=== PATIENT | female | born 1960 | race Caucasian/White ===

== ENCOUNTER 2016-07-19 05:45 | Inpatient (IN) | payer OTHER ==
[2016-07-04 13:03] LABS: URINE BILIRUBIN NEGATIVE (Negative); URINE BLOOD NEGATIVE (Negative); URINE COLOR YELLOW; URINE GLUCOSE-RANDOM* NEGATIVE (Negative); URINE KETONES NEGATIVE (Negative); URINE LEUKOCYTES-REFLEX NEGATIVE (Negative); URINE PROTEIN (DIPSTICK) NEGATIVE (Negative); URINE SPECIFIC GRAVITY 1.015 (1.003-1.035); URINE UROBILINOGEN 0.2 E.U./dl (0.2-1.0)
[2016-07-04 13:04] LABS: HEMATOCRIT 38.8 % (37.0-47.0); MCH 30.7 pg (26.0-34.0); MCHC 33.6 g/dL (28.0-37.0); MCV 91.6 fL (80.0-100.0); RBC 4.24 mil/uL (4.20-5.00); RDW 14.4 % (10.5-14.5); WBC 6.5 thou/uL (4.0-11.0)
[2016-07-04 13:11] LABS: ALBUMIN 3.7 g/dL (3.4-5.0); CALCIUM 8.9 mg/dL (8.5-10.1); POTASSIUM 4.2 mmol/L (3.5-5.1)
[2016-07-04 13:20] LABS: PROTIME 10.8 Seconds (9.3-11.4)
[2016-07-19] VITALS (9 sets, daily range): BP systolic 115–147; BP diastolic 72–119
[~2016-07-19] VITALS: Ht 157.5 cm; Wt 90.7 kg
--- NOTE | ~2016-07-19 | O ---
[facility] [place] [address] OPERATIVE REPORT Name: ROSALINDASTEVENNIMISHA AMARAL Carlota Room #: 543-P [facility] IN M.R.#: [id number] Admission: 07/19/16 Attend Phys: Shin Hook MD Discharge: 07/22/16 Date of : 62 Report #: [id number] THIS REPORT FOR: //name// CC: Miller Hook DATE OF SERVICE: 07/19/2016 PREOPERATIVE DIAGNOSES: 1. Right knee degenerative joint disease, severe. 2. Morbid obesity, body mass index of 40.23. POSTOPERATIVE DIAGNOSES: 1. Right knee degenerative joint disease, severe. 2. Morbid obesity, body mass index of 40.23. PROCEDURE: Right total knee arthroplasty. SURGEON: Shin Hook MD. MEMS INTEGRATION ENGINEER: Herbert Fleming, nurse practitioner. INDICATIONS FOR MEMS INTEGRATION ENGINEER: During the course of operation, extensive manipulation, retraction, and limb positioning was required. This was afforded to me by my assistant department manager. This was especially in light of the patient's size, which required additional time for the procedure. ANESTHESIA: General. INDICATIONS: See hospital H and P revisions, 07/19/2016. IMPLANTS UTILIZED: We used a DePuy PFC knee system. We used a cruciate retaining femoral component, size 2.5 press fit. Size 2 tibial tray with a 12.5 mm insert and a 35 mm oval dome patella. DESCRIPTION OF PROCEDURE: After adequate general anesthesia had been obtained, the patient's right lower extremity was prepped and draped in the usual meticulous sterile fashion. Limb was exsanguinated with gravity, tourniquet inflated to 350 torr. Anterior midline incision was made, subQ divided sharply. Hemostasis obtained with electrocautery. Medial parapatellar incision was made. Infrapatellar fat pad excised. Medial release performed. The knee was flexed. The drill was used to drill the distal femur. This hole was enlarged, irrigated, suctioned, and the intramedullary guide placed the full length of the femur. Distal femoral cutting guide pinned to appropriate height, distal femoral cut was made. Measuring device determined the size 2.[address] [address] OPERATIVE REPORT Name: NIMISHA LOPEZ Room #: 543-P [facility] IN M.R.#: [id number] Admission: 07/19/16 Attend Phys: Shin Hook MD Discharge: 07/22/16 Date of : 62 Report #: [id number] size for this patient. We marked the distal femur and impacted the cutting guide into place, and anterior, posterior, and chamfer cuts were made. Rongeur was used to remove additional osteophytes. At this time, the ACL was transected, tibia translated anteriorly, and menisci were excised. Drill was used to drill the central portion of the tibia. This hole was enlarged, irrigated, suctioned, and the intramedullary guide placed the full length of the tibia. The proximal tibial cutting guide placed at appropriate height. Proximal tibial cut was made. 2 tray gave us the best coverage on the tibia. We put the trial components in position. With a 12.5 spacer, she had the best flexion and extension gap. Patella tracked normally. Patella was then measured. Cutting guide clamped into place. Patellar cut was made. 35 template gave us the best coverage. Pedicles were drilled. Trial component put in position. It was tracked normally. At this time, the knee was taken through several cycles of flexion, extension, and the tibial tray rotation marked. Distal femur drilled. Trial components were removed. The tibial keel cuts were made. The knee was irrigated with both pulse lavage and antibiotic irrigation. Bone plugs were placed to the proximal tibia and distal femur. The cement was vacuum mixed, and when it reached the appropriate consistency, the knee was thoroughly dried, the tibial tray was cemented in to place. Excess cement was removed. The polyethylene was impacted in to place, and the femur impacted in to place, and the knee was taken out to 30 degrees of flexion with uniform compression placed across the components. Patellar button was then cemented into place, and again excess cement was removed. Irrigation was placed in the wound and allowed to rest in the wound until the cement fully cured. When it had done so, the knee was irrigated, dried thoroughly, and inspected. Drains were placed superolaterally, both deep and superficial. The retinacular layer was closed with a combination of interrupted [id number] #1 Vicryl, as well as running #1 Tevdek. SubQ closed with 2-0 Monocryl in multiple layers. Skin closed with linda. Sterile compressive dressing was applied. Tourniquet was deflated. <ELECTRONICALLY SIGNED> By: Shin Hook MD 07/23/16 [id number] Shin Hook MD /nt
[~2016-07-19 05:45] MED LIST: APAP500 PO; GABAPENTIN 100100 MG PO; LEVOTHYROXINE 0.15MG PO; MELATONIN 3 MG1 EAC1 PO; MELATONIN3 MG PO; NEURONTIN300 MG PO; OMEPRAZOLE 20 M20 M1 PO; SIMVASTATIN40 MG PO; ZOCOR20 MG PO
[2016-07-20] VITALS: BP 119/66
[2016-07-20 04:00] VITALS: BP 126/69
[2016-07-20 05:55] LABS: HEMATOCRIT 33.7 % (37.0-47.0); HEMOGLOBIN 11.3 gm/dL (12.0-15.0); MCH 31.1 pg (26.0-34.0); MCHC 33.6 g/dL (28.0-37.0); MCV 92.5 fL (80.0-100.0); RBC 3.64 mil/uL (4.20-5.00); RDW 14.3 % (10.5-14.5); WBC 12.8 thou/uL (4.0-11.0)
[2016-07-20 07:24] VITALS: BP 120/72
[2016-07-20 13:00] LABS: CALCIUM 8.7 mg/dL (8.5-10.1); CREATININE 0.9 mg/dL (0.6-1.0); POTASSIUM 3.8 mmol/L (3.5-5.1)
[2016-07-20 16:15] VITALS: BP 147/93
[2016-07-20 20:20] VITALS: BP 145/87
[2016-07-21] VITALS (7 sets, daily range): BP systolic 123–150; BP diastolic 74–99
[2016-07-21 05:34] LABS: HEMATOCRIT 34.8 % (37.0-47.0); HEMOGLOBIN 11.6 gm/dL (12.0-15.0); MCHC 33.4 g/dL (28.0-37.0); MCV 92.7 fL (80.0-100.0); RBC 3.75 mil/uL (4.20-5.00); RDW 14.7 % (10.5-14.5)
[2016-07-21] MEDS ORDERED: XARELTO10 MG PO (06:24)
[2016-07-21] MEDS ORDERED: HYDROCODONE-APA1 TA1 PO (06:25)
[2016-07-21] MEDS ORDERED: TRAMADOL 50 MG50 MG PO (06:25)
[2016-07-22 04:00] VITALS: BP 143/77
[2016-07-22 06:24] LABS: HEMATOCRIT 34.1 % (37.0-47.0); HEMOGLOBIN 11.3 gm/dL (12.0-15.0); MCH 30.7 pg (26.0-34.0); MCHC 33.3 g/dL (28.0-37.0); MCV 92.3 fL (80.0-100.0); RBC 3.69 mil/uL (4.20-5.00); RDW 14.7 % (10.5-14.5); WBC 8.3 thou/uL (4.0-11.0)
[2016-07-22 07:43] VITALS: BP 138/86
[2016-07-22 12:40] VITALS: BP 126/74
[2016-07-22 12:44] VITALS: BP 126/74
== END 2016-07-22 13:05 | disposition home health service (06) | DRG 470 ==
LOC: TBA 05:45 → 5S 05:45 → PRE 08:09 → 5S 15:47
PROVIDERS: Nurse Practitioner; Orthopaedic Surgery
PROC: 0SRC0J9 Replacement of Right Knee Joint with Synthetic Substitute, Cemented, Open Approach (ICD-10-PCS; principal; 2016-07-19)
DX: M17.11 Unilateral primary osteoarthritis, right knee (principal); Z68.41 Body mass index [BMI] 40.0-44.9, adult; E66.01 Morbid (severe) obesity due to excess calories; E78.5 Hyperlipidemia, unspecified; G62.9 Polyneuropathy, unspecified; Z96.652 Presence of left artificial knee joint; D72.829 Elevated white blood cell count, unspecified; E78.00 Pure hypercholesterolemia, unspecified; E03.9 Hypothyroidism, unspecified; Z88.0 Allergy status to penicillin; Z87.891 Personal history of nicotine dependence; Z79.899 Other long term (current) drug therapy
CPT/HCPCS: 10785; 50010; 50101; 50415; 50612; 50954; 51130; 51225; 51320; 51412; 51771; 52001; 52282; 53000; 53078; 53364; 56525; 56527; 62110; 62900; 64037; 64042; 64043; 70005

== ENCOUNTER 2016-10-11 06:03 | Day surgery (SDC) | payer OTHER ==
[~2016-10-11] VITALS: Ht 157.5 cm; Wt 85.4 kg
[~2016-10-11 06:03] MED LIST changes: +HYDROCODONE-APA1 TA1 PO; +TRAMADOL 50 MG50 MG PO; +UNISOM25 MG PO; +XARELTO10 MG PO
[2016-10-11 14:11] VITALS: BP 138/89
[2016-10-11 16:21] VITALS: BP 138/89
== END 2016-10-11 17:21 | disposition home or self-care (01) ==
LOC: TBA 06:03 → OR 06:03
DX: M24.661 Ankylosis, right knee (principal); M17.0 Bilateral primary osteoarthritis of knee; E07.9 Disorder of thyroid, unspecified; E66.01 Morbid (severe) obesity due to excess calories; Z68.41 Body mass index [BMI] 40.0-44.9, adult; Z96.651 Presence of right artificial knee joint; Z98.890 Other specified postprocedural states; Z88.0 Allergy status to penicillin
CPT/HCPCS: 50010; 50101; 50405; 51038; 51445; 54170; 56526; 62110; 62900; 70005